=== PATIENT | female | born 1995 | race American Indian/Alaskan Native ===

== ENCOUNTER 2018-11-14 12:00 | Emergency (ER) | payer OTHER ==
[2018-11-14 12:07] VITALS: BMI 18.8
[2018-11-14 12:14] VITALS: RESP 18; TEMP 98.5
--- NOTE | 2018-11-14 12:27 | ED PDOC ---
Arrival/HPI - General Chief Complaint: Back Pain Time Seen by Provider: 11/14/18 12:03 Historian: Patient - History of Present Illness Narrative History of Present Illness (Text): 11/14/18 12:24 23 y/o female, no significant pmh, nkda, c/o rt. sided abdominal pain x 2 days. Sharp pain, on and off, associated with eating, pain from RUQ to RLQ, no tearing sensation, no night sweat, no dizziness, no change in vision, no numbness or tingling, no diarrhea, no other medical or psychological complaints. Past Medical History - Provider Review Nursing Documentation Reviewed: Yes - Infectious Disease Hx of Infectious Diseases: None - Psychiatric Hx Substance Use: No - Anesthesia Hx Anesthesia: No Hx Anesthesia Reactions: No Hx Malignant Hyperthermia: No Family/Social History - Physician Review Nursing Documentation Reviewed: Yes Family/Social History: Unknown Family HX Smoking Status: Never Smoked Hx Alcohol Use: Yes Hx Substance Use: No Allergies/Home Meds Allergies/Adverse Reactions: Allergies No Known Allergies Allergy (Verified 11/14/18 12:08) Home Medications: Home Meds Medication Instructions Recorded Confirmed No Known Home Med 11/14/18 11/14/18 Review of Systems - Review of Systems Constitutional: absent: Fatigue, Fevers Eyes: absent: Vision Changes ENT: absent: Hearing Changes Respiratory: absent: SOB, Cough Cardiovascular: absent: Chest Pain Gastrointestinal: Abdominal Pain. absent: Diarrhea, Nausea, Vomiting Musculoskeletal: absent: Arthralgias, Back Pain Skin: absent: Rash, Pruritis Neurological: absent: Headache, Dizziness Psychiatric: absent: Anxiety, Depression Physical Exam Vital Signs Reviewed: Yes Vital Signs Temp Pulse Resp BP Pulse Ox 11/14/18 12:01 98.5 F 77 18 136/73 100 Temperature: Afebrile Blood Pressure: Normal Pulse: Regular Respiratory Rate: Normal Appearance: Positive for: Well-Appearing, Non-Toxic, Comfortable Pain Distress: Mild Mental Status: Positive for: Alert and Oriented X 3 - Systems Exam Head: Present: Atraumatic, Normocephalic Pupils: Present: PERRL Extroacular Muscles: Present: EOMI Conjunctiva: Present: Normal Mouth: Present: Moist Mucous Membranes Neck: Present: Normal Range of Motion Respiratory/Chest: Present: Clear to Auscultation, Good Air Exchange. No: Respiratory Distress, Accessory Muscle Use Cardiovascular: Present: Regular Rate and Rhythm, Normal S1, S2. No: Murmurs Abdomen: Present: Tenderness (RUQ and RLQ). No: Distention, Peritoneal Signs, Rebound, Guarding Back: Present: Normal Inspection. No: CVA Tenderness, Midline Tenderness, Paraspinal Tenderness, Pain with Leg Raise, Decubitus Ulcer Upper Extremity: Present: Normal Inspection. No: Cyanosis, Edema Lower Extremity: Present: Normal Inspection. No: Edema Neurological: Present: GCS=15, CN II-XII Intact, Speech Normal, Motor Func Grossly Intact, Normal Cerebellar Funct, Gait Normal, Memory Normal Skin: Present: Warm, Dry, Normal Color. No: Rashes Psychiatric: Present: Alert, Oriented x 3, Normal Insight, Normal Concentration Medical Decision Making ED Course and Treatment: 11/14/18 12:26 -Labs -CT abd/pelvis -Gall bladder sonogram -IVF/pepcid -Observe and reassess 11/14/18 16:05 -Urine hcg is negative -CT abd/pelvis There is a 2.3 x 1.8 cm heterogeneously mass adjacent to the left fundus of the uterus with surrounding free fluid. This demonstrates irregular hyperdense reagan and may represent recently ruptured follicle/cyst, ovary or fibroid. Recommend pelvic ultrasound for further evaluation. Small to moderate amount of pelvic free fluid. Moderate to large volume of stool in the right and transverse colon. Underdistention versus wall thickening of the left colon. Consider colitis of infectious/inflammatory etiology. -Gall bladder sonogram Unremarkable right upper quadrant ultrasound. -Labs are non-significant -UA show no UTI -Pt.'s pain resolved, all labs and radiology results discussed with the patient and she has no pain. Pt. has no pelvic pain. -Pain is likely constipation etiology with other incidental findings. -Discharge home with magnesium citrate, high fiber diet, motrin or tylenol for pain, follow up with your own pmd and GI/obgyn within 2 days for pelvic/transvaginal sonogram to evaluate the mass of your CT scan which is unspecific, return to the ER for any new or worsening signs or symptoms. - RAD Interpretation Radiology Orders: 11/14/18 12:23 ABD & PELVIS IV CONTRAST ONLY [CT] Stat GALL BLADDER [US] Stat CT abdomen and pelvis: Date of service: 11/14/2018 PROCEDURE: CT Abdomen and Pelvis with contrast HISTORY: Rt. side abdominal pain COMPARISON: None available. TECHNIQUE: CT scan of the abdomen pelvis was performed after the administration of IV and oral contrast. Coronal and sagittal reconstructions were also acquired. . Radiation dose: Total exam DLP = 305.06 mGy-cm. FINDINGS: LOWER THORAX: Visualized lung bases are clear. Heart is normal in size. LIVER: Subcentimeter hypodensity noted left lobe liver, too small to characterize. GALLBLADDER AND BILE DUCTS: Unremarkable. PANCREAS: Unremarkable. SPLEEN: Unremarkable. ADRENALS: Unremarkable. KIDNEYS AND URETERS: Unremarkable. No hydronephrosis. VASCULATURE: The aorta is normal in caliber. No aortic atherosclerotic calcification or mural plaque present. STOMACH AND BOWEL: There is no abnormal small or large bowel dilatation. Moderate to large volume of stool noted in the right and transverse colon. There is underdistention versus wall thickening of the left colon. APPENDIX: Normal appendix. PERITONEUM: Small to moderate amount of pelvic free fluid. LYMPH NODES: There is no significant abdominal or pelvic lymphadenopathy. BLADDER: Unremarkable. REPRODUCTIVE: Uterus is unremarkable by CT. There is a 2.3 x 1.8 cm heterogeneously mass adjacent to the left fundus of the uterus with surrounding free fluid. This demonstrates irregular reagan and may represent recently ruptured follicle/cyst, ovary or fibroid. BONES: No acute fracture identified. OTHER FINDINGS: None. IMPRESSION: There is a 2.3 x 1.8 cm heterogeneously mass adjacent to the left fundus of the uterus with surrounding free fluid. This demonstrates irregular hyperdense reagan and may represent recently ruptured follicle/cyst, ovary or fibroid. Recommend pelvic ultrasound for further evaluation. Small to moderate amount of pelvic free fluid. Moderate to large volume of stool in the right and transverse colon. Underdistention versus wall thickening of the left colon. Consider colitis of infectious/inflammatory etiology. Additional findings as above. Gall bladder sonogram: Date of service: 11/14/2018 HISTORY: Rt. side abdominal pain COMPARISON: CT abdomen pelvis performed earlier same day. TECHNIQUE: Sonographic evaluation of the right upper quadrant abdomen. FINDINGS: LIVER: Liver is unremarkable in echogenicity. No focal liver mass is identified. No intrahepatic biliary ductal dilatation is identified. Portal vein is patent with normal hepatopetal flow. GALLBLADDER: The gallbladder is physiologically distended. No gallstones, gallbladder wall thickening, or pericholecystic fluid is identified.No sonographic Bates's sign was appreciated during the exam. COMMON BILE DUCT: Normal in caliber measuring 0.3 cm. PANCREAS: Not visualized due to overlying bowel gas. RIGHT KIDNEY: Measures 0.5cm. Unremarkable in echogenicity. No shadowing renal stone, cyst, or hydronephrosis is identified AORTA: No aneurysmal dilatation of the visualized portions. IVC: Visualized portions are unremarkable.. OTHER FINDINGS: None. IMPRESSION: Unremarkable right upper quadrant ultrasound. Machine Accountant: Radiologist - Medication Orders Current Medication Orders: Famotidine (Pepcid) 20 mg IVP STAT STA Stop: 11/14/18 12:24 Sodium Chloride (Sodium Chloride 0.9%) 1,000 mls @ 100 mls/hr IV .Q10H SHAE - PA / COURTROOM REPORTER / Resident Statement MD/DO has reviewed & agrees with the documentation as recorded. Disposition/Present on Arrival - Present on Arrival Any Indicators Present on Arrival: No History of DVT/PE: No History of Uncontrolled Diabetes: No Urinary Catheter: No History of Decub. Ulcer: No History Surgical Site Infection Following: None - Disposition Have Diagnosis and Disposition been Completed?: Yes Diagnosis: Constipation, Mass of uterus Disposition: HOME/ ROUTINE Disposition Time: 16:07 Patient Plan: Discharge Condition: IMPROVED Additional Instructions: -Discharge home with magnesium citrate, high fiber diet, motrin or tylenol for pain, follow up with your own pmd and GI/obgyn within 2 days for pelvic/transvaginal sonogram to evaluate the mass of your CT scan which is unspecific, return to the ER for any new or worsening signs or symptoms. Referrals: Daphney Bailey MD [Staff Provider] - Follow up with primary Ronny Dimas MD [Staff Provider] - Follow up with primary [facility] [place] - Follow up with primary Forms: [employer] (Mongolian), WORK NOTE
[2018-11-14] MEDS ORDERED: Sodium Chloride 0.9% 1,000 ML IV SCH (12:30)
[2018-11-14 13:06] LABS: BASO # 0.02 K/mm3 (0.0-2.0); BASO % 0.4 % (0.0-3.0); EOS # 0.1 (0.0-0.7); HEMOGLOBIN 12.2 g/dL (12.0-16.0); LYMPH # 2.5 (1.2-3.4); LYMPH % 43.9 % (22.0-35.0); MEAN CELL VOLUME 84.3 fl (80.0-105.0); MEAN CORPUSCULAR HEMOGLOBIN 27.3 pg (25.0-35.0); MEAN CORPUSCULAR HGB CONC 32.4 g/dl (31.0-37.0); MEAN PLATELET VOLUME 9.7 fl (7.0-11.0); MONO # 0.5 (0.1-0.6); MONO % 9.1 % (1.0-6.0); RBC 4.47 10^6/uL (3.5-6.1); RED CELL DISTRIBUTION WIDTH 13.1 % (11.5-14.5); WHITE BLOOD COUNT 5.6 10^3/uL (4.5-11.0)
[2018-11-14 13:08] LABS: URINE BILIRUBIN NEGATIVE (NEGATIVE); URINE BLOOD NEGATIVE (NEGATIVE); URINE GLUCOSE (UA) NEGATIVE (NEGATIVE); URINE LEUKOCYTE ESTERASE NEGATIVE Leu/uL (NEGATIVE); URINE PROTEIN NEGATIVE mg/dL (<30 mg/dL); URINE UROBILINOGEN 0.2 E.U./dL (<1 E.U./dL)
[2018-11-14 13:09] LABS: URINE APPEARANCE SL CLOUDY (CLEAR); URINE COLOR YELLOW (YELLOW)
[2018-11-14 13:10] LABS: ALB/GLOB RATIO 1.3 (1.1-1.8); ALBUMIN 4.5 g/dL (3.0-4.8); ALT/SGPT 9 U/L (7-56); AST/SGOT 24 U/L (14-36); BLOOD UREA NITROGEN 11 mg/dL (7-21); CALCIUM 9.3 mg/dL (8.4-10.5); GFR NON-AFRICAN AMERICAN > 60; LIPASE 124 U/L (23-300)
[2018-11-14] MEDS ORDERED: Iohexol 300 100 ML IJ ONE (13:19)
[2018-11-14 14:49] VITALS: BP 135/55; PULSE 73; O2SAT 99
--- NOTE | 2018-11-14 14:55 | CT ---
Date of service: 11/14/2018 PROCEDURE: CT Abdomen and Pelvis with contrast HISTORY: Rt. side abdominal pain COMPARISON: None available. TECHNIQUE: CT scan of the abdomen pelvis was performed after the administration of IV and oral contrast. Coronal and sagittal reconstructions were also acquired. . Radiation dose: Total exam DLP = 305.06 mGy-cm. FINDINGS: LOWER THORAX: Visualized lung bases are clear. Heart is normal in size. LIVER: Subcentimeter hypodensity noted left lobe liver, too small to characterize. GALLBLADDER AND BILE DUCTS: Unremarkable. PANCREAS: Unremarkable. SPLEEN: Unremarkable. ADRENALS: Unremarkable. KIDNEYS AND URETERS: Unremarkable. No hydronephrosis. VASCULATURE: The aorta is normal in caliber. No aortic atherosclerotic calcification or mural plaque present. STOMACH AND BOWEL: There is no abnormal small or large bowel dilatation. Moderate to large volume of stool noted in the right and transverse colon. There is underdistention versus wall thickening of the left colon. APPENDIX: Normal appendix. PERITONEUM: Small to moderate amount of pelvic free fluid. LYMPH NODES: There is no significant abdominal or pelvic lymphadenopathy. BLADDER: Unremarkable. REPRODUCTIVE: Uterus is unremarkable by CT. There is a 2.3 x 1.8 cm heterogeneously mass adjacent to the left fundus of the uterus with surrounding free fluid. This demonstrates irregular reagan and may represent recently ruptured follicle/cyst, ovary or fibroid. BONES: No acute fracture identified. OTHER FINDINGS: None. IMPRESSION: There is a 2.3 x 1.8 cm heterogeneously mass adjacent to the left fundus of the uterus with surrounding free fluid. This demonstrates irregular hyperdense reagan and may represent recently ruptured follicle/cyst, ovary or fibroid. Recommend pelvic ultrasound for further evaluation. Small to moderate amount of pelvic free fluid. Moderate to large volume of stool in the right and transverse colon. Underdistention versus wall thickening of the left colon. Consider colitis of infectious/inflammatory etiology. Additional findings as above.
--- NOTE | 2018-11-14 15:41 | US ---
Date of service: 11/14/2018 HISTORY: Rt. side abdominal pain COMPARISON: CT abdomen pelvis performed earlier same day. TECHNIQUE: Sonographic evaluation of the right upper quadrant abdomen. FINDINGS: LIVER: Liver is unremarkable in echogenicity. No focal liver mass is identified. No intrahepatic biliary ductal dilatation is identified. Portal vein is patent with normal hepatopetal flow. GALLBLADDER: The gallbladder is physiologically distended. No gallstones, gallbladder wall thickening, or pericholecystic fluid is identified.No sonographic Bates's sign was appreciated during the exam. COMMON BILE DUCT: Normal in caliber measuring 0.3 cm. PANCREAS: Not visualized due to overlying bowel gas. RIGHT KIDNEY: Measures 0.5cm. Unremarkable in echogenicity. No shadowing renal stone, cyst, or hydronephrosis is identified AORTA: No aneurysmal dilatation of the visualized portions. IVC: Visualized portions are unremarkable.. OTHER FINDINGS: None. IMPRESSION: Unremarkable right upper quadrant ultrasound.
[2018-11-14] MEDS ORDERED: Magnesium Citrate Oral SOL (300 ml) PO ONE (16:05)
== END 2018-11-14 16:26 | disposition home or self-care (01) ==
LOC: ED 12:00
DX: K59.00 Constipation, unspecified (principal); N85.9 Noninflammatory disorder of uterus, unspecified
CPT/HCPCS: 74177; 76705; 80053; 81003; 81025; 83690; 85025; 96374; 99284; J7030; Q9967